=== PATIENT | female | born 1975 | race Two or more races ===

== ENCOUNTER 2017-04-26 22:11 | Emergency (ER) | payer OTHER ==
[~2017-04-26] VITALS: Ht 165.1 cm; Wt 79.7 kg
[2017-04-27] MEDS ORDERED: TRAMADOL HCL50 MG PO (00:34)
[2017-04-27] MEDS ORDERED: NAPROSYN500 MG PO (00:34)
[2017-04-27 00:47] VITALS: BP 128/86
== END 2017-04-27 00:53 | disposition home or self-care (01) ==
LOC: EME 22:11 → RME 22:11
DX: S90.32XA Contusion of left foot, initial encounter (principal); W20.8XXA Other cause of strike by thrown, projected or falling object, initial encounter
CPT/HCPCS: 73630; 99281; 99283